=== PATIENT | male | born 1995 | race Caucasian/White ===

== ENCOUNTER 2023-02-22 05:31 | Emergency (ER) | payer SELFPAY ==
--- OUTSIDE RECORDS SUMMARY | 2023-02-22 05:35 | XMS REPORT | Continuity of Care Document ---
:1995 Author Organization Formerly [facility] t Address [address] [place] [address] [address] [place] [address] Care Team Providers Name Role Phone CECILE RUIZ Attending Clinician Unavailable Problems This patient has no known problems. Allergies, Adverse Reactions, Alerts This patient has no known allergies or adverse reactions. Medications This patient has no known medications. Procedures This patient has no known procedures. Encounters Start End Encounter Admission Attending Care Care Encounter Source Date/Time Date/Time Type Type Clinicians Facility Department ID 2020-10-26 2020-10-26 Emergency [facility] [id number] [place] [address] 00:00:00 00:00:00 CECILE [address] Results This patient has no known results.
[2023-02-22] MEDS ORDERED: FLUORESCEIN SODIUM 1 MG/WRAP ONE (05:54)
[2023-02-22] MEDS ORDERED: TETRACAINE HCL 0.5% 4ML OPTH ONE (05:54)
--- NOTE | 2023-02-22 05:55 | EDPHYS ---
Physician Documentation [facility] Name: Mert Carter Age: 27 yrs Sex: Male : 1995 Arrival Date: 02/22/2023 Time: 05:31 Bed 6 Private MD: ED Physician Jovani Chew HPI: 02/22 05:52 This 27 yrs old Male presents to ER via Ambulatory with complaints of Eye ec2 Pain, Eye Swelling. 05:52 Patient arrives today due to concern for right eye pain. Patient reports that for the ec2 past couple days she been having pain in the right eye and pain with movement and some light sensitivity. Patient reports no fevers or chills, no nausea or vomiting, no known eye trauma. Patient does not wear contact lenses. Patient reports otherwise no medical problems, no previous eye pathology. Patient states that he is having some drainage from the area.. Historical: - Allergies: 05:43 No Known Allergies; as6 - Home Meds: 05:43 None [Active]; as6 - PMHx: 05:43 None; as6 - PSHx: 05:43 None; as6 - Immunization history:: Adult Immunizations up to date. - Social history:: Smoking status: Reported history of juuling and/or vaping. ROS: 05:52 Constitutional: eye pain ec2 Exam: 05:52 Constitutional: GEN: NAD Head: atraumatic Eyes: Right eye with conjunctival ec2 injection, corneal stain yields corneal abrasion right at the center of the cornea, small. No hyphema, no pain with extraocular motions. Ears: External ears are normal. CV: regular rate LUNGS: no respiratory distress ABD: non-distended SKIN: no evidence of rashes MSK: no evidence of trauma NEURO: moves all extremities equally Vital Signs: 05:42 BP 117 / 77; Pulse 71; Resp 20 S; Temp 98.2(TE); Pulse Ox 99% on R/A; Weight 68.04 kg as6 (R); Height 5 ft. 11 in. (R); 05:42 Body Mass Index 20.92 (68.04 kg, 180.34 cm) as6 MDM: 05:35 Patient medically screened. ec2 05:52 Data reviewed: vital signs. ED course: Patient arrives today due to concern for right ec2 eye pain as well as right eye injection. Examination remarkable for corneal abrasion as noted above. We will prescribe the patient erythromycin and have him follow-up with a primary care doctor. Instructed him on [id number] medications. Considered other process such as preseptal and septal cellulitis. Patient otherwise without systemic signs and symptoms to warrant lab tests or imaging at this time.. 02/22 05:46 Order name: Eye Tray; Complete Time: 05:48 lg3 02/22 05:46 Order name: Fluoresene Opth strip; Complete Time: 05:48 lg3 Administered Medications: 05:48 Drug: Tetracaine Ophthalmic Drops 0.5 % 1 drops Ophthalmic once Route: Ophthalmic; lg3 Site: right eye; 06:12 Follow up: Response: No adverse reaction as6 Disposition Summary: 02/22/23 05:54 Discharge Ordered Notes: Location: Home ec2 Condition: Stable ec2 Diagnosis - Injury of conjunctiva and corneal abrasion without foreign body ec2 Discharge Instructions: - Discharge Summary Sheet ec2 Forms: - Medication Reconciliation Form ec2 - Thank You Letter ec2 - Antibiotic Education ec2 - Prescription Opioid Use ec2 - Patient Portal Instructions ec2 - Leadership Thank You Letter ec2 Prescriptions: - Erythromycin 5 mg/gram (0.5 %) Ophthalmic ointment - apply 1 centimeter OPHTHALMIC route 4 times per day for 7 days; 1 gram; ec2 Refills: 0, Product Selection Permitted Signatures: Emilie Alejo RN RN lg3 Sebastian Nichols RN RN as6 Jovani Chew MD MD ec2 Corrections: (The following items were deleted from the chart) 05:43 05:43 PSHx: Unable to Obtain; as6 as6
--- NOTE | 2023-02-22 05:55 | ER ---
Nurse's Notes [facility] Name: Mert Carter Age: 27 yrs Sex: Male : 1995 Arrival Date: 02/22/2023 Time: 05:31 Bed 6 Private MD: Diagnosis: Injury of conjunctiva and corneal abrasion without foreign body Presentation: 02/22 05:42 Chief complaint: Patient states: right eye pain and redness. Coronavirus screen: At as6 this time, the client does not indicate any symptoms associated with coronavirus-19. Ebola Screen: No symptoms or risks identified at this time. Initial Sepsis Screen: Does the patient meet any 2 criteria? No. Patient's initial sepsis screen is negative. Does the patient have a suspected source of infection? No. Patient's initial sepsis screen is negative. Risk Assessment: Do you want to hurt yourself or someone else? Patient reports no desire to harm self or others. Onset of symptoms was February 20, 2023. 05:42 Acuity: LATISHA 4 as6 05:42 Method Of Arrival: Ambulatory as6 05:48 Mechanism of Injury: No Mechanism of Injury. The patient reports a positive loss of lg3 vision. The patient's loss of vision began gradually. Historical: - Allergies: 05:43 No Known Allergies; as6 - Home Meds: 05:43 None [Active]; as6 - PMHx: 05:43 None; as6 - PSHx: 05:43 None; as6 - Immunization history:: Adult Immunizations up to date. - Social history:: Smoking status: Reported history of juuling and/or vaping. Screenin:46 [facility] ED Fall Risk Assessment (Adult) History of falling in the last 3 months, lg3 including since admission No falls in past 3 months (0 pts). Abuse screen: Denies threats or abuse. Denies injuries from another. Nutritional screening: No deficits noted. Tuberculosis screening: No symptoms or risk factors identified. Assessment: 05:46 General: Appears in no apparent distress. uncomfortable, Behavior is calm, cooperative. lg3 Pain: Complains of pain in right eye. Neuro: No deficits noted. Goldsmith Agitation-Sedation Scale (RASS): 0 - Alert and Calm Level of Consciousness is awake, alert, obeys commands, Oriented to person, place, time, situation. Cardiovascular: No deficits noted. Denies chest pain, shortness of breath, Capillary refill < 3 seconds Clubbing of nail beds is absent JVD is absent Patient's skin is warm and dry. Respiratory: No deficits noted. Airway is patent Respiratory effort is even, unlabored, Respiratory pattern is regular, symmetrical. GI: No deficits noted. No signs and/or symptoms were reported involving the gastrointestinal system. Abdomen is flat, non-distended. : No deficits noted. No signs and/or symptoms were reported regarding the genitourinary system. EENT: Eyes are tearing on right eye with exudate noted from right eye Sclera/Cornea are reddened in right eye Reports pain in right eye. Derm: No deficits noted. No signs and/or symptoms reported regarding the dermatologic system. Skin is intact, is healthy with good turgor, Skin is dry, Skin is normal, Skin temperature is warm. Musculoskeletal: No deficits noted. No signs and/or symptoms reported regarding the musculoskeletal system. Circulation, motion, and sensation intact. Range of motion: intact in all extremities. Vital Signs: 05:42 BP 117 / 77; Pulse 71; Resp 20 S; Temp 98.2(TE); Pulse Ox 99% on R/A; Weight 68.04 kg as6 (R); Height 5 ft. 11 in. (R); 05:42 Body Mass Index 20.92 (68.04 kg, 180.34 cm) as6 ED Course: 05:35 Patient arrived in ED. gm2 05:35 Jovani Chew MD is Attending Physician. ec2 05:43 Triage completed. as6 05:43 Arm band placed on. as6 05:46 Patient has correct armband on for positive identification. Bed in low position. Call lg3 light in reach. Side rails up X 1. Client placed on continuous cardiac and pulse oximetry monitoring. NIBP monitoring applied. Door closed. Noise minimized. Warm blanket given. Family accompanied patient. 05:46 Patient maintains SpO2 saturation greater than 95% on room air. lg3 06:10 Assist provider with eye exam of right eye. using fluorescein stain, Performed by Jovani Chew MD Patient tolerated well. Patient did not have IV access during this emergency room visit. 06:11 Provided Education on: follow up. as6 Administered Medications: 05:48 Drug: Tetracaine Ophthalmic Drops 0.5 % 1 drops Ophthalmic once Route: Ophthalmic; lg3 Site: right eye; 06:12 Follow up: Response: No adverse reaction as6 Medication: 06:10 VIS not applicable for this client. as6 Outcome: 05:54 Discharge ordered by . ec2 06:11 Discharged to home ambulatory, with significant other, as6 06:11 Condition: stable 06:11 Discharge instructions given to patient, Instructed on discharge instructions, follow up and referral plans. medication usage, Demonstrated understanding of instructions, follow-up care, medications, Prescriptions given X 1, 06:12 Patient left the ED. as6 Signatures: Emilie Alejo RN RN lg3 Sebastian Nichols RN RN as6 Jovani Chew MD MD ec2 Noemi Contreras 2 Corrections: (The following items were deleted from the chart) 05:43 05:43 PSHx: Unable to Obtain; as6 as6
[2023-02-22 06:26] VITALS: BP 117/77; TEMP 98.2; O2SAT 99
== END 2023-02-22 06:12 | disposition home or self-care (01) ==
LOC: ER 05:31
DX: S05.01XA Injury of conjunctiva and corneal abrasion without foreign body, right eye, initial encounter (principal)
CPT/HCPCS: 99284